=== PATIENT | male | born 1960 | race Caucasian/White ===

== ENCOUNTER → 2021-10-25 | Day surgery (SDC) | payer BC ==
[~2021-10-25] MED LIST: MULTI-VITAMIN1 EACH PO; RAMIPRIL10 MG PO
== END | disposition home or self-care (01) ==
LOC: OR 06:01
DX: Z12.11 Encounter for screening for malignant neoplasm of colon (principal); K63.5 Polyp of colon; K64.1 Second degree hemorrhoids; K64.4 Residual hemorrhoidal skin tags; I10 Essential (primary) hypertension; Z86.010 Personal history of colon polyps; Z79.899 Other long term (current) drug therapy
CPT/HCPCS: J2704; J7040